=== PATIENT | female | born 1980 | race Caucasian/White ===

== ENCOUNTER 2021-12-26 05:56 | Day surgery (SDC) | payer BC ==
[2021-12-18 12:47] LABS: Specific Gravity 1.015 (1.005-1.030); Urine Clarity Clear (Clear); Urine Color Yellow (Yellow)
[2021-12-18 12:48] LABS: Urine Bilirubin NEGATIVE (Negative); Urine Blood 2+ (Negative); Urine Glucose Negative (Negative); Urine Protein Negative (Negative); Urine Urobilinogen 0.2 mg/dL (0.2-1.0)
[2021-12-18 12:49] LABS: Urine Bacteria None Seen /HPF (<20); Urine RBC 21-50 /HPF (None Seen)
[2021-12-22 11:42] LABS: Absolute Lymphocytes (CBC) 1.7 K/uL (0.7-4.9); Lymphocytes % 30.6 % (15.3-44.8); MCV 90.4 fL (80-100); MPV 7.1 fL (7.6-11.3); RBC Red Blood Cell Count 4.32 M/uL (3.86-4.86)
[2021-12-22 11:54] LABS: SARS-CoV-2 Antigen Rapid Res Negative (Negative)
[2021-12-22 12:08] LABS: Ferritin 13.5 ng/mL (8-388)
[2021-12-26] MEDS ORDERED: SCOPOLAMINE HYDROBROMIDE PATCH TD ONE (06:26)
[2021-12-26] MEDS ORDERED: Ringers Lactate 1,000 ML IV ONE ×2 (06:27→07:38)
[2021-12-26] MEDS ORDERED: CEFAZOLIN 2 GM IN 0.9% NACL 2 GM/100 ML BAG ONE (06:27)
[2021-12-26] MEDS ORDERED: CEFAZOLIN 2 GM IN 0.9% NACL 2 GM/100 ML BAG IV SCH (07:00)
[2021-12-26] MEDS ORDERED: Ringers Lactate 1,000 ML IV SCH (07:00)
[2021-12-26] MEDS ORDERED: BUPIVACAINE 0.25% PF 30 ML VIAL ONE (07:38)
[2021-12-26] MEDS ORDERED: NA CHLORIDE 0.9% 1,000 ML ONE (07:38)
[2021-12-26] MEDS ORDERED: FENTANYL CITR 100 MCG/2 ML ONE (07:40)
[2021-12-26] MEDS ORDERED: propofoL 200 MG/20 ML VIAL IV ONE (07:40)
[2021-12-26] MEDS ORDERED: LIDOCAINE 1% MPF 5 ML VIAL ONE (07:41)
[2021-12-26] MEDS ORDERED: ROCURONIUM 50 MG/5 ML VIAL IV ONE (07:41)
[2021-12-26] MEDS ORDERED: MIDAZOLAM HCL 2 MG/2 ML INJ ONE (07:41)
[2021-12-26] MEDS ORDERED: ONDANSETRON 4 MG/2 ML VIAL ONE ×2 (07:42→08:16)
[2021-12-26] MEDS ORDERED: dexAMETHasone 4 MG/ML VIAL ONE (08:16)
[2021-12-26] MEDS ORDERED: SUGAMMADEX SODIUM 200 MG/2 ML VIAL IV ONE (08:30)
[2021-12-26] MEDS ORDERED: VECURONIUM 10 MG/VIAL IV ONE (08:41)
[2021-12-26] MEDS ORDERED: SCOPOLAMINE HYDROBROMIDE PATCH TD SCH (09:00)
[2021-12-26] MEDS ORDERED: KETOROLAC 30 MG/ML INJ ONE (10:51)
[2021-12-26] MEDS ORDERED: IBUPROFEN 200 MG TAB PO PRN (10:58)
[2021-12-26] MEDS ORDERED: HYDROCODONE/APAP 5/325 MG TAB PO PRN (10:58)
[2021-12-26] MEDS ORDERED: MEPERIDINE HCL 25 MG/ML SYR IM PRN (10:58)
[2021-12-26] MEDS ORDERED: PROMETHAZINE INJ 25 MG/ML AMP IV PRN (10:58)
--- NOTE | 2021-12-26 10:59 | P.BOP ---
Preoperative diagnosis: incarcerated tender umbilical hernia Postoperative diagnosis: same Primary procedure: Open repair of incarcerated/non reducible tender umbilical hernia Other procedure(s): (see Dr Barragan op report) [facility] [employer]: Swathi Bautista (Josh) Estimated blood loss: <10cc Specimen: sac Findings: incarcerated fatty tissue Anesthesia: General Complications: None Transferred to: Recovery Room Condition: Good <Stephane Mckeon - Last Filed: 12/26/21 10:57> Preoperative diagnosis: incarcerated tender umbilical hernia, AUB-L Postoperative diagnosis: same, apical prolapse Primary procedure: Open repair of incarcerated tender umbilical hernia,TLH BS,vag morcellation Secondary procedure: Lapsc USLS colpopexy, lysis of dense bladder adhesions and abd wall(30min) Specimen: sac, uterus and tubes Findings: incarcerated fatty tissue, dense bladder adhesions/apical prolapse Anesthesia: General Complications: None Transferred to: Recovery Room Condition: Good <Marie Barragan - Last Filed: 12/26/21 11:06>
[2021-12-26] MEDS ORDERED: METOCLOPRAMIDE 10 MG/2mL INJ ONE (12:10)
[2021-12-26] MEDS ORDERED: HYDROMORPHONE HCL 1 MG/ML INJ ONE (12:17)
[2021-12-26 14:59] VITALS: TEMP 97; O2SAT 98
[2021-12-26 15:00] VITALS: BP 111/55
[2021-12-26] MEDS ORDERED: NA CHLORIDE 0.9% 500 ML ONE (16:12)
[2021-12-26] MEDS ORDERED: BUSPIRONE HCL 5 MG TABLET PO SCH (21:00)
[2021-12-26] MEDS ORDERED: HOME MED 1 EA UNK (Budesonide/Glycopyr/Formoterol [Breztri Aerosphere Inhaler] 10.7 GM Hfa IH SCH (21:00)
--- NOTE | 2021-12-26 22:43 | OP ---
Date of Procedure: 12/26/2021 Surgeon: Marie Barragan MD Staff Physical Therapist: Swathi Cool. Preoperative Diagnoses: Abnormal uterine bleeding-O/L, ASCUS Pap of the cervix. Postoperative Diagnoses: Abnormal uterine bleeding-O/L, ASCUS Pap of the cervix and uterine prolapse or level 1 prolapse. Bladder adhesions from scar to a significant level to the anterior ab dominal wall of the uterus to the anterior abdominal wall as well as the bladder. Procedures Performed: 1.Total laparoscopic hysterectomy, bilateral salpingectomy. 2.Vaginal morcellation for retrieval of specimen. 3.Lysis of bladder adhesions, which took significant amount of time and lysis of uterine adhesions a s well, at least 30 minutes of the case. 4.Uterosacral ligament suspension, colpopexy, and cystoscopy. Estimated Blood Loss: 50. Urine Output: 200. Specimens: Uterus and tubes. Complications: No complications. Drains: No drains. Condition: Stable. Findings: Dense bladder adhesions to the lower segment of the uterus where the hysterotomy scar was present as well as the uterine adhesions to the anterior abdominal wall, retroperitoneal par t of the bladder. The lateral adhesions of the anterior broad ligament to the lateral wall, left shoaib e more than the right. Once the bladder adhesions were taken down, the bladder was retrograde filled and there was no eviden ce of any injury. On cystoscopy at the end of the procedure, both ureteric orifices had strong jets of urine from them. No evidence of any foreign body or injury. Patient was transferred to recovery room in a good condition. Indication For Procedure: Patient is a 41-year-old 2, para 2, 2 sections, status po st tubal evaluated for bleeding. Large leiomyoma was noted. Endometrial sampling was performed. No atypia or malignancy. On Pap screening, she had an ASCUS Pap. Then, we discussed all options of rocio sanchez including an endometrial ablation, levonorgestrel IUD, medical management, or surgical manag ement with hysterectomy, bilateral salpingectomy, and all other subsequent procedures. She also had an umbilical hernia for which she was referred to Dr. Mckeon. Patient wanted to proce ed with a hysterectomy with removal of the uterus, preservation of ovaries and repair of her umbilica l hernia. The procedure was discussed and consented. She was re-consented in the preoperative area. Her bnaupvj-ew-kyu were present as her supporting [facility]. Q and A was done to their satisfaction. Patient was taken back to the OR. Description Of Procedure: She was placed in supine fashion on operative table. General anesthesia w as given. She was placed in a dorsal lithotomy position in Loco stirrups. Arms were tucked by the side and positioning was checked. SCDs were started. Antibiotics: 2 g of Ancef were given and time -out was done. Abdomen, vulva, vagina, and perineum were prepped and draped in a sterile fashion. F oley was placed to drain the bladder and a large VCare introduced into the uterus without any problem s and fixed in place. The bladder was attached for retrograde filling and this area was draped. A 1 cm supraumbilical incision was made with a scalpel as the left lateral and infraumbilical area wa s distorted from an incarcerated umbilical hernia. This hernia repair was to be done by Dr. Mckeon at the end of the procedure. The fascia was picked up after the skin was incised with a 15 blade. Peritoneal cavity was entered. Tagged 0 Vicryl sutures were placed. Carl introduced and after adequate insufflation, site of ent ry was checked and was unremarkable. Patient was placed in Trendelenburg after the upper abdomen was surveyed. Two 5 ports were placed in the left lower quadrant and left upper quadrant under direct vision. This allowed me to take down the bladder from the anterior abdominal wall. Both 10 suprapubic ports coul d not be placed as there were dense adhesions here. The LigaSure 5 mm was taken and windows were made to take the uterus down from the bladder from the a nterior abdominal wall and from its retroperitoneal location. The plane between the uterus and the bladder was identified and dissected, stayed in this plane to ta ke the bladder adhesions down all the way in the midline to the center of the vaginal cuff. On both sides, started taking adhesions down from the left round ligament. The tube was first remove d with the LigaSure and handed out for permanent pathology. Then, the round ligament was opened up a nd the area between the lateral wall and the round ligament was dissected carefully with sharp dissec tion all the way to the left paravaginal space. Then posteriorly, the dissection was performed on th e posterior aspect of the cup. This was incised to philippe the location where I should keep my colpotom y. The utero-ovarian ligament, round ligament were taken down with help of the LigaSure. Posterior broa d ligament was dissected all the way to the level of the cup without any problems. Ureter was much l ateral and was not scarred into this tissue. Then, the rest of the broad ligament was taken down. T he vessels were skeletonized. Then, adhesions of the rest of the bladder were taken down from the an terior abdominal wall and then from the uterus. This likely exposed the anterior vaginal wall. I went on to place a 10 port through the suprapubic area and a 5 right lower quadrant port and these were used and assisted in helping me getting through the right side. Utero-ovarian ligament was take n down, round ligament was taken down. Then, anterior broad ligament was dissected away from its lat eral wall and the bladder at the level of the cup and once the ligaments were taken down, broad ligam ent opened up the posterior broad ligament, opened up all the way to the posterior cup. Then, the ve ssels were isolated and then the bladder was seen densely adhered to the lower segment of the uterus. So, here with sharp scissors and a very tiny amount of monopolar cautery was used to separate the t issues and release them from the scar and once this was done, the bladder was dissected under itself between the bladder and the vaginal wall so that the retroperitoneal space was opened up. This helpe d me figure the top most part of the bladder. The bladder was filled and drained and then bladder ad hesions taken down help of sharp scissors. Once entire bladder was dissected down, it was pushed inf eriorly with the help of a and once there was excellent exposure of the entire cup, the ve ssels were taken on either side with the help of the LigaSure and the bipolar and cut with self sciss ors or the LigaSure itself. Cardinal ligaments were taken down as well on both sides and circumferen tial colpotomy with a monopolar hook blade was done. Specimen was pulled out through the vagina hold ing on mass clamps. Then, went down vaginally, placed 2 retractors in the anterior-posterior aspect and with the help of Yankauer suction, kept the vision clear to morcellate under direct vision with a 10 blade. Once this was adequately done, the specimen was pulled out and the closure was placed. Gloves were changed an d I then went back for the rest of the laparoscopic procedure. Thorough irrigation and suction were performed. Both ovaries were intact and had good blood supply. All the pedicles were hemostatic. 2-0 Vicryl sutures were placed at both angles and a 2-0 V-Loc was used to do a continuous running closure of the vaginal cuff in 2 layers. EEA Sizer was placed in the vagina to identify the drop in the vagina and be able to identify the cuf f. The uterosacral ligaments were identified after the ureters were identified at the distal part of the pelvic space. Then, 2-0 PDS suture was placed through the uterosacral ligament on the left side first going medial to lateral and then posterior vaginal wall, anterior vaginal wall. This was tied down. A similar suture was placed on the opposite side after identifying the uterosacral ligament u sing the Sizer to retract the vagina through the uterosacral ligament, posterior vaginal wall and ant erior vaginal wall and a rugyum-rv-bdari was taken and tied down. There was excellent support and chandler spension. No evidence of any trauma to the ureters. After thorough irrigation and suction, all the trocars were removed. Fascia at the supraumbilical incision was closed with the help of 0 Vicryl sut ures tied to each other and simple 0 Vicryl stitch at the suprapubic fascial site. All skin incision s were closed with the help of 4-0 chromic. Cystoscopy was performed with 30-degree lens normal saline and then good jets of urine was seen from both ureteric orifices. No evidence of any trauma or foreign body. Bladder was drained, vagina was cleaned up, and the skin incisions were closed with a 4-[address] Mckeon at this point took o aziza the case. [id number]-[id number] were briefed about her findings and instruction. DONNA/ESTEFANY Voice ID: [id number] Report ID: [id number]
[2021-12-27] MEDS ORDERED: SERTRALINE HCL 50 MG TAB PO SCH (09:00)
[2021-12-27] MEDS ORDERED: FERROUS SULFATE 325 MG TAB PO SCH (09:00)
== END 2021-12-26 16:50 | disposition home or self-care (01) ==
LOC: OR 05:56
PROVIDERS: ATTEND Obstetrics & Gynecology
PROC: 0USG7ZZ Reposition Vagina, Via Natural or Artificial Opening (ICD-10-PCS; 2021-12-26)
PROC: 0TNB4ZZ Release Bladder, Percutaneous Endoscopic Approach (ICD-10-PCS; 2021-12-26)
PROC: 0UN94ZZ Release Uterus, Percutaneous Endoscopic Approach (ICD-10-PCS; 2021-12-26)
PROC: 0UT94ZZ Resection of Uterus, Percutaneous Endoscopic Approach (ICD-10-PCS; principal; 2021-12-26 07:30)
PROC: 0UT74ZZ Resection of Bilateral Fallopian Tubes, Percutaneous Endoscopic Approach (ICD-10-PCS; 2021-12-26 07:30)
DX: N93.9 Abnormal uterine and vaginal bleeding, unspecified (principal); D50.8 Other iron deficiency anemias; N94.6 Dysmenorrhea, unspecified; K42.9 Umbilical hernia without obstruction or gangrene; N92.1 Excessive and frequent menstruation with irregular cycle; R87.610 Atypical squamous cells of undetermined significance on cytologic smear of cervix (ASC-US); Z20.822 Contact with and (suspected) exposure to COVID-19
CPT/HCPCS: 36415; 81001; 82728; 83540; 84466; 85025; 86850; 86900; 86901; 87811; 88302; 88307; J0690; J1100; J1170; J2001; J2250; J2405; J2704; J2765; J3010; J7030; J7040; J7120